=== PATIENT | male | born 1930 | race Caucasian/White ===

== ENCOUNTER 2017-12-24 19:38 | Emergency (ER) | payer MEDICARE, OTHER ==
[~2017-12-24] VITALS: Ht 172.7 cm; Wt 88.5 kg
[~2017-12-24 19:38] MED LIST: AMLO10 PO; ASPI81CH PO; Advil200 M1 PO; BENA20 PO; CALCIUM PO; CYCL10 PO; ERGO400 PO; FISH1000 PO; GLUC500 PO; MULVITMINF PO; Omeprazole20 M1 PO; SIMV10 PO; TAMS.4ER PO; VIT1CAPS12 PO
[2017-12-24 20:25] LABS: BASOPHILS ABSOLUTE AUTO 0.04 K/mm3 (0.00-0.23); BASOPHILS PERCENT AUTO 1 % (0-2); EOSINOPHILS ABSOLUTE AUTO 0.14 K/mm3 (0.00-0.68); EOSINOPHILS PERCENT AUTO 2 % (0-6); Hematocrit 38.7 % (37.0-53.0); Hemoglobin 12.5 g/dL (13.5-17.5); IMMATURE GRAN ABSOLUTE AUTO 0.01 K/mm3 (0.00-0.10); IMMATURE GRAN PERCENT AUTO 0 % (0-1); LYMPHOCYTES PERCENT AUTO 21 % (21-46); MONOCYTES ABSOLUTE AUTO 0.68 K/mm3 (0.16-1.47); MONOCYTES PERCENT AUTO 10 % (4-13); Mean Corpuscular HGB 30.6 pg (26.0-34.0); Mean Corpuscular HGB Conc 32.3 g/dL (31.5-36.5); Mean Corpuscular Volume 95 fL (80-100); Mean Platelet Volume 10.5 fL (9.1-12.4); NEUTROPHILS ABSOLUTE AUTO 4.52 K/mm3 (1.96-9.15); NEUTROPHILS PERCENT AUTO 67 % (41-73); Platelet Count 208 K/mm3 (150-400); RDW Coefficient Variation 14.4 % (11.7-14.2); RDW Standard Deviation 50.4 fL (35.1-46.3); Red Blood Cell Count 4.08 M/mm3 (4.30-5.90); White Blood Cell Count 6.79 K/mm3 (4.00-11.30)
[2017-12-24 20:39] LABS: Albumin, Blood 3.8 g/dL (3.4-5.0); Bilirubin, Total 0.4 mg/dL (0.1-1.0); Bun/Creatinine Ratio 21.7 (12.0-20.0); Calcium, Blood 8.7 mg/dL (8.5-10.1); Creatinine, Blood 1.66 mg/dL (0.60-1.20); Globulin, Blood 3.8 g/dL (2.2-4.0); Potassium, Blood 4.4 mmol/L (3.5-5.5); Total Protein, Blood 7.6 g/dL (6.4-8.2)
== END 2017-12-24 22:33 | disposition home or self-care (01) ==
LOC: ER 19:38
PROVIDERS: Emergency Medicine
DX: R42 Dizziness and giddiness (principal); I10 Essential (primary) hypertension; Z79.899 Other long term (current) drug therapy; Z79.82 Long term (current) use of aspirin; Z87.891 Personal history of nicotine dependence
CPT/HCPCS: 36415; 80053; 85025; 93005; 93010; 99283

== ENCOUNTER 2019-03-01 04:56 | Inpatient (IN) | payer MEDICARE, OTHER ==
[~2019-03-01] VITALS: Ht 172.7 cm; Wt 87.7 kg
[2019-03-01 05:59] LABS: BASOPHILS ABSOLUTE AUTO 0.04 K/mm3 (0.00-0.23); BASOPHILS PERCENT AUTO 0 % (0-2); EOSINOPHILS ABSOLUTE AUTO 0.02 K/mm3 (0.00-0.68); EOSINOPHILS PERCENT AUTO 0 % (0-6); Hemoglobin 13.8 g/dL (13.5-17.5); IMMATURE GRAN ABSOLUTE AUTO 0.05 K/mm3 (0.00-0.10); IMMATURE GRAN PERCENT AUTO 0 % (0-1); LYMPHOCYTES PERCENT AUTO 5 % (21-46); MONOCYTES ABSOLUTE AUTO 0.74 K/mm3 (0.16-1.47); MONOCYTES PERCENT AUTO 6 % (4-13); Mean Corpuscular HGB 31.2 pg (26.0-34.0); Mean Corpuscular HGB Conc 32.9 g/dL (31.5-36.5); Mean Corpuscular Volume 95 fL (80-100); Mean Platelet Volume 10.3 fL (9.1-12.4); NEUTROPHILS ABSOLUTE AUTO 11.44 K/mm3 (1.96-9.15); NEUTROPHILS PERCENT AUTO 89 % (41-73); Platelet Count 205 K/mm3 (150-400); RDW Coefficient Variation 12.8 % (11.7-14.2); RDW Standard Deviation 44.1 fL (35.1-46.3); Red Blood Cell Count 4.43 M/mm3 (4.30-5.90); White Blood Cell Count 12.89 K/mm3 (4.00-11.30)
[2019-03-01 06:12] LABS: Albumin, Blood 3.6 g/dL (3.4-5.0); Albumin/Globulin Ratio 0.9 (0.8-1.8); Bilirubin, Total 0.4 mg/dL (0.1-1.0); Calcium, Blood 8.9 mg/dL (8.5-10.1); Creatinine, Blood 1.33 mg/dL (0.60-1.20); Globulin, Blood 3.8 g/dL (2.2-4.0); Potassium, Blood 5.2 mmol/L (3.5-5.5); Total Protein, Blood 7.4 g/dL (6.4-8.2)
--- NOTE | 2019-03-01 10:50 | NUR ---
pt arrived to room 229 from er dept being admitted for partial sbo pt stated he has had n/v since last night and dry heaves this am and abd pain past few days no bm past 3 days until he started having the n/v last night then had a good b/m had been taking stool softner pt stated he has not had any changes otherwise to his med routine or his physical routine pain at this time is 5/10 to the lower abd and mid abd and has epigastric pain from vomitting they did an ekg in the er was ns will notify dr sweet when he is out of the or for surg consult pt is npo prn mouth car supplies given
--- NOTE | 2019-03-01 12:05 | NUR ---
PT LAYING IN BED STATED THE PAIN IS BETTER BUT HAVING THE HICCUPS
--- NOTE | 2019-03-01 13:37 | NUR ---
CONSULT: SURGICAL CONSULT CALLED TO DR PINEDA BY THIS RN.
--- NOTE | 2019-03-01 15:35 | NUR ---
DR PINEDA BY TO SEE PT OK TO HAVE CL DIET
--- NOTE | 2019-03-01 18:00 | NUR ---
pt still bernice cl diet asked pt if he needs any pain meds stated no
--- NOTE | 2019-03-02 00:19 | NUR ---
Pt received awake, alert and oriented x3. Vital signs stable. On supplemental oxygen at 0.5L per NC. IVF infusing well. Patient ambulating to bathroom. Voiding and passing gas. Complaining of mild lower abdominal pain, medicated as ordered. Refer to EMAR. Call light within reach of Pt. Continue to monitor.
[2019-03-02 04:27] LABS: BASOPHILS ABSOLUTE AUTO 0.03 K/mm3 (0.00-0.23); BASOPHILS PERCENT AUTO 0 % (0-2); EOSINOPHILS ABSOLUTE AUTO 0.11 K/mm3 (0.00-0.68); EOSINOPHILS PERCENT AUTO 1 % (0-6); Hematocrit 36.8 % (37.0-53.0); Hemoglobin 11.9 g/dL (13.5-17.5); IMMATURE GRAN ABSOLUTE AUTO 0.02 K/mm3 (0.00-0.10); IMMATURE GRAN PERCENT AUTO 0 % (0-1); LYMPHOCYTES ABSOLUTE AUTO 1.22 K/mm3 (0.84-5.20); LYMPHOCYTES PERCENT AUTO 14 % (21-46); MONOCYTES ABSOLUTE AUTO 0.85 K/mm3 (0.16-1.47); MONOCYTES PERCENT AUTO 10 % (4-13); Mean Corpuscular HGB 30.7 pg (26.0-34.0); Mean Corpuscular HGB Conc 32.3 g/dL (31.5-36.5); Mean Corpuscular Volume 95 fL (80-100); Mean Platelet Volume 10.2 fL (9.1-12.4); NEUTROPHILS ABSOLUTE AUTO 6.67 K/mm3 (1.96-9.15); NEUTROPHILS PERCENT AUTO 75 % (41-73); Platelet Count 174 K/mm3 (150-400); RDW Coefficient Variation 13.2 % (11.7-14.2); RDW Standard Deviation 46.4 fL (35.1-46.3); Red Blood Cell Count 3.87 M/mm3 (4.30-5.90)
[2019-03-02 04:47] LABS: Alanine Aminotransfer (ALT/SGP 16 U/L (12-78); Albumin, Blood 2.9 g/dL (3.4-5.0); Albumin/Globulin Ratio 0.9 (0.8-1.8); Alk Phos 57 U/L (50-136); Anion Gap 6 mmol/L (6-16); Aspartate Aminotrans (AST/SGOT 15 U/L (12-37); Bilirubin, Total 0.6 mg/dL (0.1-1.0); Blood Urea Nitrogen 19 mg/dL (8-24); CO2, Blood 23 mmol/L (21-32); Calcium, Blood 7.8 mg/dL (8.5-10.1); Chloride, Blood 111 mmol/L (98-108); Creatinine, Blood 1.12 mg/dL (0.60-1.20); Globulin, Blood 3.3 g/dL (2.2-4.0); Glomerular Filtration Rate >60 (60-); Glucose, Blood 110 mg/dL (70-99); Potassium, Blood 4.7 mmol/L (3.5-5.5); Sodium, Blood 140 mmol/L (136-145); Total Protein, Blood 6.2 g/dL (6.4-8.2)
--- NOTE | 2019-03-02 05:56 | NUR ---
Pt alert and oriented. Vital signs stable. IVF infused. Ambulating to bathroom. Voiding well. Passing gas. Tolerating clear liquids. slept throughout the night.
--- NOTE | 2019-03-02 15:37 | NUR ---
DISCHARGE SUMMARY OT A&OX4, VSS, LEFT FLOOR WITH TO GO HOME, WITH ALL PERSONAL PROPERTY INCLUDING DISCHARGE PACKET. DISCHARGE INSTRUCTIONS PROVIDED. PT REP UNDERSTANDING THOSE INSTRUCTIONS INCLUDING 1 WK FU WITH PCP, STOOL SOFTENERS AND FULL LIQUID DIET FOR 2 DAYS. IV DC'D.
== END 2019-03-02 15:15 | disposition home or self-care (01) | DRG 395 ==
LOC: ER 04:56 → SURS 04:57 → ER 04:57 → SURS 09:48
PROVIDERS: Emergency Medicine; ADMIT Family Medicine
DX: K43.6 Other and unspecified ventral hernia with obstruction, without gangrene (principal); E86.9 Volume depletion, unspecified; M19.90 Unspecified osteoarthritis, unspecified site; J44.9 Chronic obstructive pulmonary disease, unspecified; K21.9 Gastro-esophageal reflux disease without esophagitis; R07.89 Other chest pain; G25.0 Essential tremor; H90.5 Unspecified sensorineural hearing loss; I12.9 Hypertensive chronic kidney disease with stage 1 through stage 4 chronic kidney disease, or unspecified chronic kidney disease; N18.3 Chronic kidney disease, stage 3 (moderate); E78.5 Hyperlipidemia, unspecified; Z79.82 Long term (current) use of aspirin; Z79.899 Other long term (current) drug therapy
CPT/HCPCS: 36415; 74022; 74177; 80053; 83690; 85025; 93005; 93010; 96361; 96374-59; 96375; 99285-25; J1170; J1650; J2405; J7030; J7042; Q9967

== ENCOUNTER 2019-03-07 01:43 | Inpatient (IN) | payer MEDICARE, OTHER ==
[~2019-03-07] VITALS: Ht 172.7 cm; Wt 86.2 kg
[2019-03-07 02:06] LABS: BASOPHILS ABSOLUTE AUTO 0.04 K/mm3 (0.00-0.23); BASOPHILS PERCENT AUTO 0 % (0-2); EOSINOPHILS ABSOLUTE AUTO 0.07 K/mm3 (0.00-0.68); EOSINOPHILS PERCENT AUTO 1 % (0-6); Hematocrit 40.9 % (37.0-53.0); Hemoglobin 13.6 g/dL (13.5-17.5); IMMATURE GRAN ABSOLUTE AUTO 0.03 K/mm3 (0.00-0.10); IMMATURE GRAN PERCENT AUTO 0 % (0-1); LYMPHOCYTES ABSOLUTE AUTO 0.89 K/mm3 (0.84-5.20); LYMPHOCYTES PERCENT AUTO 8 % (21-46); MONOCYTES ABSOLUTE AUTO 0.85 K/mm3 (0.16-1.47); MONOCYTES PERCENT AUTO 7 % (4-13); Mean Corpuscular HGB 31.4 pg (26.0-34.0); Mean Corpuscular HGB Conc 33.3 g/dL (31.5-36.5); Mean Corpuscular Volume 95 fL (80-100); Mean Platelet Volume 10.6 fL (9.1-12.4); NEUTROPHILS ABSOLUTE AUTO 9.66 K/mm3 (1.96-9.15); NEUTROPHILS PERCENT AUTO 84 % (41-73); Platelet Count 205 K/mm3 (150-400); RDW Coefficient Variation 12.7 % (11.7-14.2); RDW Standard Deviation 44.1 fL (35.1-46.3); Red Blood Cell Count 4.33 M/mm3 (4.30-5.90); White Blood Cell Count 11.54 K/mm3 (4.00-11.30)
[2019-03-07 02:25] LABS: Albumin, Blood 3.8 g/dL (3.4-5.0); Bilirubin, Total 0.4 mg/dL (0.1-1.0); Creatinine, Blood 1.31 mg/dL (0.60-1.20); Globulin, Blood 3.9 g/dL (2.2-4.0); Potassium, Blood 4.8 mmol/L (3.5-5.5); Total Protein, Blood 7.7 g/dL (6.4-8.2)
[2019-03-07 05:13] LABS: Hematocrit 39.8 % (37.0-53.0); Hemoglobin 13.1 g/dL (13.5-17.5); Mean Corpuscular HGB Conc 32.9 g/dL (31.5-36.5); Mean Corpuscular Volume 94 fL (80-100); Mean Platelet Volume 10.5 fL (9.1-12.4); Platelet Count 194 K/mm3 (150-400); RDW Coefficient Variation 12.8 % (11.7-14.2); RDW Standard Deviation 43.8 fL (35.1-46.3); Red Blood Cell Count 4.23 M/mm3 (4.30-5.90); White Blood Cell Count 12.44 K/mm3 (4.00-11.30)
[2019-03-07 05:35] LABS: Albumin, Blood 3.6 g/dL (3.4-5.0); Bilirubin, Total 0.5 mg/dL (0.1-1.0); Bun/Creatinine Ratio 15.8 (12.0-20.0); Calcium, Blood 8.9 mg/dL (8.5-10.1); Creatinine, Blood 1.33 mg/dL (0.60-1.20); Globulin, Blood 3.5 g/dL (2.2-4.0); Potassium, Blood 5.2 mmol/L (3.5-5.5); Total Protein, Blood 7.1 g/dL (6.4-8.2)
--- NOTE | 2019-03-07 07:26 | NUR ---
PT ADMITTED FROM ED AT APPROX 0410 FOR SBO. PT A&O X4. VS WNL. PT C/O SOME PAIN, HOWEVER MOSTLY NAUSEATED. MEDICATED WITH ZOFRAN PER EMAR. HYPOACTIVE BT. PT DENIES PASSING GAS. REPORTS THAT HIS LAST BM WAS YESTERDAY. PT NPO WITH FLUIDS INFUSING.
[2019-03-07] MEDS ORDERED: SENN187 PO (07:54)
--- NOTE | 2019-03-07 10:43 | NUR ---
PT TO DAY SURGERY AT APPOX 1030.
--- NOTE | 2019-03-07 11:25 | NUR ---
Patient up to Ambulate independently. Gait steady. Surgical site prepped with 2% Chlorhexidine cloth wipe. History, Chart, Medications and Allergies reviewed before start of procedure.Lungs clear T/O to Auscultation. Patient confirms NPO status and agrees with scheduled surgery. FAMILY AT BEDSIDE. PT PEARL ARIAS HAS BILATERAL HEARING AIEDS AND UPPER DENTURES REMOVED AND PLACED IN PACU. PT HAD INCREASING PAIN AND NAUSEA AND VEBALIZED THAT IT WAS OK THAT SIGNED FOR HIM. GAVE FENTANYL 12.5MCG AND ZOFRAN 4MG PER DR PINEDA. PT NAUSEA AND PAIN DECREASED BY 75% PER PATIENT. PT ALERT AND ORIENTED ON TRANSFER TO OR 2.
--- NOTE | 2019-03-07 11:50 | NUR ---
03/07/19 1150 Maria Ines Elizabeth A PATIENT GIVEN 4.5GM ZOSYN BROUGHT TO OR BY PALMA ROMERO AT 1141. DURÁN PLACED BY PALMA SAMPSON IN OR.
--- NOTE | 2019-03-07 15:33 | NUR ---
PT REQUESTED TO HAVE DURÁN CATHETER REMOVED DUE TO IRRITATION AND BURNING SENSATION.
--- NOTE | 2019-03-07 16:43 | NUR ---
SHIFT SUMMARY S/P EX LAP TODAY WITH HERNIA AND SBO REPAIR. PREVENA WOUND VAC IN PLACE WITH ABD BINDER IN PLACE. MEDICATED X1 WITH 25 MCG IV FENTANYL FOR PAIN. PT SLOWLY JULES ICE CHIPS. UP WITH 1 SBA TO BATHROOM USING PERSONAL CANE. LUIS ARMANDO BEGUM'Beulah PER PT REQUEST. IVF INFUSING PER ORDERS. POST OP VSS. FAMILY AT BEDSIDE FOR SUPPORT. CALL LIGHT WITHIN REACH.
--- NOTE | 2019-03-08 05:12 | NUR ---
Pt received awake, alert and oriented x4. c/o Moderate pain 12/05. medicated per order. Ambulating in hallway with cane. Wound vac intact, incision C/D/I. Pt having diffulties urinating, , bladder scanned 172ml. Encouraged pt to drink fluids, patient voided 100ml.
--- NOTE | 2019-03-08 10:37 | NUR ---
Spiritual care visit attempted. Upon receiving an admit referral for spiritual care, I visited patient. Patient is lying in bed and alert with spouse, Lindy hernandez. Patient tells me his medical history beginning about 4 years ago up to the present. While he is telling me his history a Friend enters the room and patient asks if I could come back tomorrow. I state that I will try to make that happen. I will continue to remain available to patient and family.
--- NOTE | 2019-03-08 18:39 | NUR ---
SUMMARY NO ACUTE CHANGES NOTED THROUGH THE DAY. PT IS INDEPENDENT IN THR ROOM. HIS IS AT THE BEDSIDE AND ASSISTS WITH CARE. PT IS TOLERATING CLEAR FLUIDS, VOIDING WNL. STATES HE IS UNABLE TO PASS FLATUS. PROVENA WOUND VAC REMAINS INTACT, SUCTION IN PLACE. PAIN WNL. CALL LIGHT IN REACH
[2019-03-09 05:02] LABS: BASOPHILS ABSOLUTE AUTO 0.01 K/mm3 (0.00-0.23); BASOPHILS PERCENT AUTO 0 % (0-2); EOSINOPHILS ABSOLUTE AUTO 0.05 K/mm3 (0.00-0.68); EOSINOPHILS PERCENT AUTO 1 % (0-6); Hematocrit 34.9 % (37.0-53.0); Hemoglobin 11.4 g/dL (13.5-17.5); IMMATURE GRAN ABSOLUTE AUTO 0.04 K/mm3 (0.00-0.10); IMMATURE GRAN PERCENT AUTO 0 % (0-1); LYMPHOCYTES ABSOLUTE AUTO 0.57 K/mm3 (0.84-5.20); LYMPHOCYTES PERCENT AUTO 5 % (21-46); MONOCYTES ABSOLUTE AUTO 0.88 K/mm3 (0.16-1.47); MONOCYTES PERCENT AUTO 8 % (4-13); Mean Corpuscular HGB 31.5 pg (26.0-34.0); Mean Corpuscular HGB Conc 32.7 g/dL (31.5-36.5); Mean Corpuscular Volume 96 fL (80-100); Mean Platelet Volume 10.5 fL (9.1-12.4); NEUTROPHILS ABSOLUTE AUTO 9.48 K/mm3 (1.96-9.15); NEUTROPHILS PERCENT AUTO 86 % (41-73); Platelet Count 170 K/mm3 (150-400); RDW Standard Deviation 46.2 fL (35.1-46.3); Red Blood Cell Count 3.62 M/mm3 (4.30-5.90); White Blood Cell Count 11.03 K/mm3 (4.00-11.30)
--- NOTE | 2019-03-09 05:14 | NUR ---
Patient A&O x4. Vital signs stable. Ambulating in hallway with cane. Pt states abdominal pain has improved. Wound vacc in place, no drainage. Pt states he has not passed gas. Voiding freely.
[2019-03-09 06:12] LABS: Bun/Creatinine Ratio 19.8 (12.0-20.0); Calcium, Blood 8.2 mg/dL (8.5-10.1); Creatinine, Blood 1.31 mg/dL (0.60-1.20); Phosphorus, Blood 3.2 mg/dL (2.5-4.9); Potassium, Blood 4.4 mmol/L (3.5-5.5)
--- NOTE | 2019-03-09 18:22 | NUR ---
Summary: Joey has been pleasant and cooperative this shift. He is amublating in the hallways, reports having passed flatus. Wound vac patent, abdominal binder in place. He is [place], able to communicate easily with hearing aids in place. at bedside. VSS. He uses his call light appropraitely, it is within reach. He is able to make his needs known.
--- NOTE | 2019-03-10 05:28 | NUR ---
Patient Alert and oriented x4. Ambulating in hallways. Passing gas. No complaints of pain. Tolerating clear liquids. voiding well
[2019-03-10 05:56] LABS: Bun/Creatinine Ratio 17.9 (12.0-20.0); Creatinine, Blood 1.23 mg/dL (0.60-1.20); Potassium, Blood 4.3 mmol/L (3.5-5.5)
--- NOTE | 2019-03-10 11:53 | NUR ---
dr micki ryan on pt, orders received
--- NOTE | 2019-03-10 17:57 | NUR ---
NO ACUTE CHANGES THIS SHIFT. ABI REPORTS FEELING BETTER AND BETTER. HE STATES HE IS FEELING STRONGER. HE IS AMBULATING INDEPENDENTLY, TAKING HIMSELF ON SHORT WALKS AROUND THE UNIT. AT BEDSIDE. HE SHOWERED TODAY WITH ONLY SETUP ASSISTANCE. HE USES HIS CALL LIGHT APPROPRIATELY. HE IS ABLE TO MAKE HIS NEEDS KNOWN. HE IS RESTING COMFORTABLY IN BED WITH HIS CALL LIGHT IN REACH. DR. PINEDA ADVANCED HIS DIET TO FULL LIQUIDS TODAY WHICH HE HAS BEEN TOLERATING WELL, NO N/V.
--- NOTE | 2019-03-11 04:25 | NUR ---
SHIFT SUMMARY: PT POD#4 FOR RESECTION WITH LYSIS OF ADHESIONS + HERNIA REPAIR. MIDLINE PREVINA INTACT WITH FOAM COMPRESSED. ACTIVE BT IN ALL QUADRANTS WITH MOD DISTENTION. PT REPORTS PASSING GAS. NO BM SINCE SURGERY. JULES FULL LIQ DIET. DENIES N/V AND ABD PAIN. AMBULATING HALLWAY AND INDEPENDENT IN ROOM. AT BEDSIDE AND IS SUPPORTIVE WITH CARE.
--- NOTE | 2019-03-11 14:01 | NUR ---
DR CORDERO HERE RECENTLY TO SEE PT. SEE ORDERS.
--- NOTE | 2019-03-11 17:23 | NUR ---
DR RABAGO HERE RECENTLY TO SEE PT.
--- NOTE | 2019-03-11 17:40 | NUR ---
SHIFT SUMMARY PT EATING AND DRINKING. PT VOIDING. PT PASSING GAS. PT UP WALKING IN HALLWAY WITH STEADY GAIT. PT USING CALL LIGHT APPR. PT BEEN ASSISTED WITH ADL'S PRN. NAIMA FRANCOIS TO SEE PT. PT FAMILY IN/OUT OF ROOM TODAY.
[2019-03-12 04:52] LABS: Bun/Creatinine Ratio 12.6 (12.0-20.0); Calcium, Blood 8.1 mg/dL (8.5-10.1); Creatinine, Blood 1.27 mg/dL (0.60-1.20)
--- NOTE | 2019-03-12 05:56 | NUR ---
PATIENT SLEPT THE MAJORITY OF THEI NIGHT, HE DID COME OUT FOR A WALK AROUND 0100. hIS WHO HAS BEEN STAYING WITH HIM IN THE ROOM FOR THE PAST FEW NIGHTS STAYED AGAIN TONIGHT. he STATED WHIL ON HIS WALK THAT HE WAS HAVING PRESSURE IN HIS ABD BUT THAT IT WAS IN NO WAY SEVERE. NO BM TONIGHT. WOUND VAC HAS HAD NO DICERNABLE OUTPUT ON THIS SHIFT.
[2019-03-12] MEDS ORDERED: ONDA4ODT SL (15:41)
--- NOTE | 2019-03-12 16:08 | NUR ---
DISCHARGE PT DISCHARGED HOME FROM UNIT AT APROX 1600. PT GIVEN WRITTEN AND VERBAL DISCHARGE INSTRUCTIONS AND VERBALIZED UNDERSTANDING OF THESE INSTRUCTIONS. IFV REMOVED, PT TOLERATED WELL. WHEELCHAIR TO CAR.
== END 2019-03-12 16:05 | disposition home or self-care (01) | DRG 331 ==
LOC: ER 01:43 → SURS 04:12
PROVIDERS: Emergency Medicine; Family Medicine; Internal Medicine Endocrinology, Diabetes & Metabolism; Surgery; ADMIT Internal Medicine
PROC: 0DB80ZZ Excision of Small Intestine, Open Approach (ICD-10-PCS; principal; 2019-03-07 11:00)
DX: K56.51 Intestinal adhesions [bands], with partial obstruction (principal); K21.9 Gastro-esophageal reflux disease without esophagitis; E78.5 Hyperlipidemia, unspecified; Z87.891 Personal history of nicotine dependence; Z79.82 Long term (current) use of aspirin; J44.9 Chronic obstructive pulmonary disease, unspecified; K42.9 Umbilical hernia without obstruction or gangrene; M19.90 Unspecified osteoarthritis, unspecified site; N18.3 Chronic kidney disease, stage 3 (moderate); I12.9 Hypertensive chronic kidney disease with stage 1 through stage 4 chronic kidney disease, or unspecified chronic kidney disease; E66.3 Overweight; Z68.28 Body mass index [BMI] 28.0-28.9, adult
CPT/HCPCS: 36415; 74176; 80048; 80053; 83690; 83735; 84100; 85025; 85027; 88307; 96374; 96375; 96376; 99285-25; J1100; J1170; J1650; J1885; J2250; J2405; J2543; J2704; J2710; J3010; J7030; J7120

== ENCOUNTER 2020-04-17 08:03 | Day surgery (SDC) | payer MEDICARE, OTHER ==
[~2020-04-17] VITALS: Ht 165.1 cm; Wt 85.8 kg
[~2020-04-17 08:03] MED LIST changes: +ONDA4ODT SL; +SENN187 PO; +ZOCOR20 MG PO
--- NOTE | 2020-04-17 09:19 | NUR ---
Ambulatory in Day Surgery History, Chart, Medications and Allergies reviewed before start of procedure. Lungs clear T/O to Auscultation. Pre-Op teaching done. Pt verbalizes understanding.
--- NOTE | 2020-04-17 14:00 | NUR ---
pt arrived to room 215 from pacu s/p l total knee pt has no sensation r/t spinal block dressing c/d/i with polar pack on pt reporting discomfort to the l shoulder and l arm with numbness repositioned pt upright in bed stated that helped pt stated he has this happen at home and it happens when he is asleep and it gets better when he can stand up oriented to room
--- NOTE | 2020-04-17 16:48 | NUR ---
PT TRYING TO VOID WITH A URINAL
--- NOTE | 2020-04-17 17:00 | NUR ---
unable to void bladder scan 257 will let pt try again in a hr
--- NOTE | 2020-04-17 18:35 | NUR ---
PT ABLE TO MOVE BOTH LEGS WANTING TO EAT DINNER THEN WILL TRY TO VOID HIS DUUGHTER CAME TO SEE HIM FOR A VISIT PT REPORTS MIN PAIN SHOULDER AND ARM BETTER
[2020-04-18 04:05] LABS: BASOPHILS ABSOLUTE AUTO 0.01 K/mm3 (0.00-0.23); BASOPHILS PERCENT AUTO 0 % (0-2); EOSINOPHILS ABSOLUTE AUTO 0.01 K/mm3 (0.00-0.68); EOSINOPHILS PERCENT AUTO 0 % (0-6); Hematocrit 33.1 % (37.0-53.0); Hemoglobin 10.4 g/dL (13.5-17.5); IMMATURE GRAN ABSOLUTE AUTO 0.04 K/mm3 (0.00-0.10); IMMATURE GRAN PERCENT AUTO 0 % (0-1); LYMPHOCYTES ABSOLUTE AUTO 0.82 K/mm3 (0.84-5.20); LYMPHOCYTES PERCENT AUTO 7 % (21-46); MONOCYTES ABSOLUTE AUTO 0.76 K/mm3 (0.16-1.47); MONOCYTES PERCENT AUTO 6 % (4-13); Mean Corpuscular HGB 30.1 pg (26.0-34.0); Mean Corpuscular HGB Conc 31.4 g/dL (31.5-36.5); Mean Corpuscular Volume 96 fL (80-100); Mean Platelet Volume 11.4 fL (9.1-12.4); NEUTROPHILS ABSOLUTE AUTO 10.47 K/mm3 (1.96-9.15); NEUTROPHILS PERCENT AUTO 86 % (41-73); Platelet Count 191 K/mm3 (150-400); RDW Coefficient Variation 12.8 % (11.7-14.2); RDW Standard Deviation 45.1 fL (35.1-46.3); Red Blood Cell Count 3.45 M/mm3 (4.30-5.90); White Blood Cell Count 12.11 K/mm3 (4.00-11.30)
[2020-04-18 04:21] LABS: Bun/Creatinine Ratio 20.2 (12.0-20.0); Calcium, Blood 8.2 mg/dL (8.5-10.1); Creatinine, Blood 1.88 mg/dL (0.60-1.20); Potassium, Blood 4.9 mmol/L (3.5-5.5)
[2020-04-18] MEDS ORDERED: ASPI81CH PO (10:55)
[2020-04-18] MEDS ORDERED: BENA20 PO (10:56)
[2020-04-18] MEDS ORDERED: ROXICODONE5 MG PO (10:59)
[2020-04-18] MEDS ORDERED: PROM25 PO (11:01)
[2020-04-18] MEDS ORDERED: SULTRIDS PO (11:03)
--- NOTE | 2020-04-18 13:38 | NUR ---
DISCHARGE SUMMARY PT DISCHARGED AT 1215 VIA WHEELCHAIR WITH LEON LEE. PT MET WITH SON OUT IN THE PATIENT'S ENTRANCE. PT IS ALERT AND ORIENTED. PT DENIES DIZZINESS, NUMBNESS AND TINGLING SENSATION. PT ALSO DENIES PAIN. HE WAS CLEARED TO BE DC'D BY PHYISCAL THERAPIST THIS MORNING. HE IS FULL WT BEARING. LEFT KNEE INCISION SITE WITH AQUACEL DRESSING IS CDI. EXTRA DRESSING AND A HAND CARRY SCRIPT OF BACTRIM WAS SENT W/ DISCHARGE PAPERWORK. ADVISE PT TO FINISH BACTRIM DIRECTED. DISCHARGE INSTRUCTIONS WAS PROVIDED TO PT, PT WAS RECEPTIVE. PT TOLERATING PO INTAKE DENIES NAUSEA AND VOMITING. PT REPORTS PASSING MILD FLATUS. ADVISE TO CALL FOR WORSENING S/SX AND SIGNS OF INFECTIONS.
--- NOTE | 2020-04-18 15:26 | NUR ---
04/18/20 1526 Sarah Peralta VERIFICATIONS: EDIT CHART.
== END 2020-04-18 13:20 | disposition home or self-care (01) ==
LOC: ORSCMMR 08:03 → ORD 10:45 → ORSCMMR 10:45 → SURS 14:08 → ORSCMMR 04-18 13:20
PROVIDERS: Orthopaedic Surgery
PROC: 8E0YXBZ Computer Assisted Procedure of Lower Extremity (ICD-10-PCS; principal; 2020-04-17 10:45)
PROC: 0SRD0J9 Replacement of Left Knee Joint with Synthetic Substitute, Cemented, Open Approach (ICD-10-PCS; principal; 2020-04-17 10:45)
DX: M17.12 Unilateral primary osteoarthritis, left knee (principal); Z23 Encounter for immunization; I10 Essential (primary) hypertension; N18.9 Chronic kidney disease, unspecified; Z79.899 Other long term (current) drug therapy; Z79.82 Long term (current) use of aspirin; Z87.891 Personal history of nicotine dependence
CPT/HCPCS: 36415; 73560-LT; 80048; 83735; 85025; 88300; 97110; 97116; 97162; A9270; A9270-GY; C1713; C1776; G0008; J0171; J0690; J0735; J1100; J1885; J2250; J2370; J2405; J2704; J2795; J3010; J3370; J7120; Q2038

== ENCOUNTER → 2020-08-21 | Outpatient (CLI) | payer MEDICARE, OTHER ==
[~2020-08-21] MED LIST changes: +CENTRUM SILVER1 EAC2 PO; +FISH OIL 1,2001 EAC7 PO; +FUROSEMIDE20 MG PO; +KLOR-CON 1010 ME1 PO; +PRIMIDONE PO; +PROM25 PO; +Primidone50 MG PO; +ROXICODONE5 MG PO; +SULTRIDS PO; +THERA-D2000 UNIT PO; +TURMERIC500 M2 PO
== END ==
LOC: PLD 16:06 → LAB SHORT 16:06
DX: D48.5 Neoplasm of uncertain behavior of skin (principal)
CPT/HCPCS: 88305

== ENCOUNTER → 2021-02-07 | Outpatient (CLI) | payer MEDICARE, OTHER ==
[2021-02-07 10:51] LABS: BASOPHILS ABSOLUTE AUTO 0.04 K/mm3 (0.00-0.23); BASOPHILS PERCENT AUTO 1 % (0-2); EOSINOPHILS ABSOLUTE AUTO 0.13 K/mm3 (0.00-0.68); EOSINOPHILS PERCENT AUTO 2 % (0-6); Hematocrit 34.3 % (37.0-53.0); Hemoglobin 11.3 g/dL (13.5-17.5); IMMATURE GRAN ABSOLUTE AUTO 0.04 K/mm3 (0.00-0.10); IMMATURE GRAN PERCENT AUTO 1 % (0-1); LYMPHOCYTES ABSOLUTE AUTO 1.12 K/mm3 (0.84-5.20); LYMPHOCYTES PERCENT AUTO 13 % (21-46); MONOCYTES ABSOLUTE AUTO 0.63 K/mm3 (0.16-1.47); MONOCYTES PERCENT AUTO 7 % (4-13); Mean Corpuscular HGB 30.2 pg (26.0-34.0); Mean Corpuscular HGB Conc 32.9 g/dL (31.5-36.5); Mean Corpuscular Volume 92 fL (80-100); NEUTROPHILS ABSOLUTE AUTO 6.58 K/mm3 (1.96-9.15); NEUTROPHILS PERCENT AUTO 77 % (41-73); Platelet Count 288 K/mm3 (150-400); RDW Coefficient Variation 14.2 % (11.7-14.2); RDW Standard Deviation 47.8 fL (35.1-46.3); Red Blood Cell Count 3.74 M/mm3 (4.30-5.90); White Blood Cell Count 8.54 K/mm3 (4.00-11.30)
[2021-02-07 11:05] LABS: Albumin/Globulin Ratio 0.7 (0.8-1.8); Bilirubin, Total 0.8 mg/dL (0.1-1.0); Bun/Creatinine Ratio 17.7 (12.0-20.0); Calcium, Blood 8.3 mg/dL (8.5-10.1); Creatinine, Blood 1.47 mg/dL (0.60-1.20); Globulin, Blood 4.1 g/dL (2.2-4.0); Potassium, Blood 4.2 mmol/L (3.5-5.5); Total Protein, Blood 7.1 g/dL (6.4-8.2)
== END | disposition home or self-care (01) ==
LOC: LAB SHORT 10:44 → LAB 10:44
PROVIDERS: Family Medicine
DX: R10.9 Unspecified abdominal pain (principal)
CPT/HCPCS: 80053; 85025

== ENCOUNTER 2021-09-27 20:41 | Inpatient (IN) | payer MEDICARE, OTHER ==
[~2021-09-27] VITALS: Ht 170.2 cm; Wt 75.5 kg
[2021-09-27 21:39] LABS: Hematocrit 21.3 % (37.0-53.0); Hemoglobin 7.2 g/dL (13.5-17.5); Mean Corpuscular HGB Conc 33.8 g/dL (31.5-36.5); Mean Corpuscular Volume 98 fL (80-100); Mean Platelet Volume 11.6 fL (9.1-12.4); RDW Coefficient Variation 13.7 % (11.7-14.2); RDW Standard Deviation 49.2 fL (35.1-46.3); Red Blood Cell Count 2.18 M/mm3 (4.30-5.90)
[2021-09-27 21:42] LABS: Platelet Count 40 K/mm3 (150-400)
[2021-09-27 21:43] LABS: White Blood Cell Count 0.77 K/mm3 (4.00-11.30)
[2021-09-27 21:53] LABS: Alanine Aminotransfer (ALT/SGP 40 U/L (12-78); Albumin, Blood 2.1 g/dL (3.4-5.0); Albumin/Globulin Ratio 0.5 (0.8-1.8); Alk Phos 322 U/L (50-136); Anion Gap 5 mmol/L (6-16); Aspartate Aminotrans (AST/SGOT 37 U/L (12-37); Bilirubin, Total 1.6 mg/dL (0.1-1.0); Blood Urea Nitrogen 17 mg/dL (8-24); Bun/Creatinine Ratio 17.9 (12.0-20.0); CO2, Blood 26 mmol/L (21-32); Calcium, Blood 7.6 mg/dL (8.5-10.1); Chloride, Blood 103 mmol/L (98-108); Creatinine, Blood 0.95 mg/dL (0.60-1.20); Globulin, Blood 4.1 g/dL (2.2-4.0); Glomerular Filtration Rate >60 (60-); Glucose, Blood 101 mg/dL (70-99); Potassium, Blood 3.6 mmol/L (3.5-5.5); Sodium, Blood 134 mmol/L (136-145); Total Protein, Blood 6.2 g/dL (6.4-8.2)
[2021-09-27 22:02] LABS: BAND PERCENT MAN 2 % (0-8); BASOPHILS PERCENT MAN 0 % (0-2); EOSINOPHILS PERCENT MAN 0 % (0-6); LYMPHOCYTES ABSOLUTE MAN 0.43 K/mm3 (0.84-5.20); LYMPHOCYTES PERCENT MAN 56 % (21-46); MONOCYTES ABSOLUTE MAN 0.21 K/mm3 (0.16-1.47); MONOCYTES PERCENT MAN 28 % (4-13); NEUTROPHILS ABSOLUTE MAN 0.12 K/mm3 (1.96-9.15); SEG NEUTROPHILS PERCENT MAN 14 % (41-73); TOTAL CELLS COUNTED 50
[2021-09-27] MEDS ORDERED: VIT1CAPS12 PO (22:28)
[2021-09-27 22:43] LABS: Influenza A, PCR NEGATIVE (NEGATIVE); Influenza B, PCR NEGATIVE (NEGATIVE); Resp Syncytial Virus, PCR NEGATIVE (NEGATIVE); SARS-Cov-2 (COVID-19) PCR, MMC NEGATIVE (NEGATIVE)
[2021-09-28 02:05] LABS: Source, Urine Clean Catch
[2021-09-28 02:07] LABS: Appearance, Urine Hazy (Clear); Bilirubin, Urine Neg (Neg); Blood, Urine Neg (Neg); Color, Urine Yellow (P-Yellow); Glucose Qualitative, Urine Neg (Neg); Ketones, Urine Neg (Neg); Leukocyte Esterase, Urine 2+ (Neg); Nitrite, Urine Neg (Neg); Protein, Urine 1+ (Neg); Urobilinogen, Urine 1+ (Normal)
[2021-09-28 02:24] LABS: Amorphous Mod (0-Heavy); Bacteria Mod /hpf; Mucus Light (0-Heavy); Red Blood Cells, Urine Not Seen /hpf (0-2); Squamous Epithelial Cells Mod /hpf (Few)
[2021-09-28 03:26] LABS: Lactate Dehydrogenase, Body Fl 206 U/L; Protein, Body Fluid 0.2 g/dL
[2021-09-28 03:37] LABS: Automated BF RBC Count 0.016 M/mm3 (0-0); Automated BF WBC Count 17.118 K/mm3 (0-999); Body Fluid WBC Count 17118 /mm3 (0-999); RBC Count, Body Fluid 16000 /mm3 (0-0)
[2021-09-28 03:40] LABS: Appearance, Body Fluid Turbid (Clear); Color, Body Fluid Brown (None-Yellow)
[2021-09-28 03:45] LABS: Total Cell Count, Body Fluid 25
[2021-09-28 06:34] LABS: Alanine Aminotransfer (ALT/SGP 30 U/L (12-78); Albumin/Globulin Ratio 0.6 (0.8-1.8); Alk Phos 241 U/L (50-136); Anion Gap 6 mmol/L (6-16); Aspartate Aminotrans (AST/SGOT 35 U/L (12-37); Bilirubin, Total 2.1 mg/dL (0.1-1.0); Blood Urea Nitrogen 17 mg/dL (8-24); Bun/Creatinine Ratio 19.5 (12.0-20.0); CO2, Blood 21 mmol/L (21-32); Calcium, Blood 7.2 mg/dL (8.5-10.1); Chloride, Blood 105 mmol/L (98-108); Creatinine, Blood 0.87 mg/dL (0.60-1.20); Globulin, Blood 3.3 g/dL (2.2-4.0); Glomerular Filtration Rate >60 (60-); Glucose, Blood 92 mg/dL (70-99); Potassium, Blood 3.8 mmol/L (3.5-5.5); Sodium, Blood 132 mmol/L (136-145); Total Protein, Blood 5.3 g/dL (6.4-8.2)
[2021-09-28 06:45] LABS: Hematocrit 23.7 % (37.0-53.0); Mean Corpuscular HGB 32.8 pg (26.0-34.0); Mean Corpuscular HGB Conc 33.8 g/dL (31.5-36.5); Mean Corpuscular Volume 97 fL (80-100); Mean Platelet Volume 10.8 fL (9.1-12.4); RDW Coefficient Variation 14.6 % (11.7-14.2); RDW Standard Deviation 51.5 fL (35.1-46.3); Red Blood Cell Count 2.44 M/mm3 (4.30-5.90)
[2021-09-28 06:49] LABS: BASOPHILS PERCENT AUTO 0 % (0-2); EOSINOPHILS PERCENT AUTO 0 % (0-6); IMMATURE GRAN PERCENT AUTO 0 % (0-1); LYMPHOCYTES ABSOLUTE AUTO 0.23 K/mm3 (0.84-5.20); LYMPHOCYTES PERCENT AUTO 42 % (21-46); MONOCYTES ABSOLUTE AUTO 0.24 K/mm3 (0.16-1.47); MONOCYTES PERCENT AUTO 44 % (4-13); NEUTROPHILS ABSOLUTE AUTO 0.08 K/mm3 (1.96-9.15); NEUTROPHILS PERCENT AUTO 15 % (41-73)
[2021-09-28 06:52] LABS: Platelet Count 30 K/mm3 (150-400); White Blood Cell Count 0.55 K/mm3 (4.00-11.30)
--- NOTE | 2021-09-28 07:47 | NUR ---
SHIFT SUMMARY PT ADMITTED TO ROOM 311 FROM ER. PT A/O X 3, HARD OF HEARING, HAS A CHRONIC ESSENTIAL TREMOR. PT VOIDING WITHOUT DIFFICULTY, IR DRAIN TO RUQ, DRAINING DARK BROWN/GREEN BILE FLUID. SBP IN THE 80'S ON ARRIVAL, 1 UNIT PRBC GIVEN FOR HGB 7.2, ALBUMIN GIVEN PER MAR. NO C/O DIZZINESS, AMBULATED WITH SBA. MED PER MAR X 1 FOR C/O HEADACHE AND MILD NAUSEA, NO EMESIS. DAUGHTER REPORTS PT HAS LOST APPROX 15 POUNDS WITHOUT TRYING RECENTLY DUE TO DECREASED APPETITE. SR NOTED ON TELE, VSS, ANTICIAPTE DC WHEN MEDICALLY STABLE.
--- NOTE | 2021-09-28 16:46 | NUR ---
SHIFT SUMMARY PT AOX4; ON NEUTROPENIC PRECAUTION. PT IS 1P ASSIST TO THE BATHROOM, AND HE HAD A BM TODAY. WBC IS 0.55 TODAY; FILGRASTIM GIVEN TO INCREASE WBC. TALKED TO DTR AND PT AT BEDSIDE ABOUT DISEASE PROCESS. NO SIGND OF BLEEDING. PT DENIES PAIN OR CP AT THIS TIME. PT HAS BILIARY DRAIN BAG; PATENT AND DRAINING. BED IS IN THE LOWEST POSITION AND CALL LIGHT WITHIN REACH
[2021-09-29 05:24] LABS: Hematocrit 25.3 % (37.0-53.0); Hemoglobin 8.6 g/dL (13.5-17.5); Mean Corpuscular HGB 32.3 pg (26.0-34.0); Mean Corpuscular Volume 95 fL (80-100); Mean Platelet Volume 11.7 fL (9.1-12.4); RDW Coefficient Variation 14.6 % (11.7-14.2); RDW Standard Deviation 50.4 fL (35.1-46.3); Red Blood Cell Count 2.66 M/mm3 (4.30-5.90); White Blood Cell Count 2.11 K/mm3 (4.00-11.30)
[2021-09-29 05:39] LABS: Platelet Count 38 K/mm3 (150-400)
[2021-09-29 05:42] LABS: Alanine Aminotransfer (ALT/SGP 31 U/L (12-78); Albumin/Globulin Ratio 0.5 (0.8-1.8); Alk Phos 250 U/L (50-136); Anion Gap 7 mmol/L (6-16); Aspartate Aminotrans (AST/SGOT 28 U/L (12-37); Bilirubin, Total 1.6 mg/dL (0.1-1.0); Blood Urea Nitrogen 19 mg/dL (8-24); Bun/Creatinine Ratio 18.8 (12.0-20.0); CO2, Blood 23 mmol/L (21-32); Calcium, Blood 7.4 mg/dL (8.5-10.1); Chloride, Blood 103 mmol/L (98-108); Creatinine, Blood 1.01 mg/dL (0.60-1.20); Globulin, Blood 3.7 g/dL (2.2-4.0); Glomerular Filtration Rate >60 (60-); Glucose, Blood 77 mg/dL (70-99); Potassium, Blood 3.6 mmol/L (3.5-5.5); Sodium, Blood 133 mmol/L (136-145); Total Protein, Blood 5.7 g/dL (6.4-8.2)
[2021-09-29 06:07] LABS: BAND PERCENT MAN 18 % (0-8); BASOPHILS PERCENT MAN 0 % (0-2); EOSINOPHILS ABSOLUTE MAN 0.02 K/mm3 (0.00-0.68); EOSINOPHILS PERCENT MAN 1 % (0-6); LYMPHOCYTES % ATYPICAL MANUAL 1 % (0-0); LYMPHOCYTES ABSOLUTE MAN 0.69 K/mm3 (0.84-5.20); LYMPHOCYTES PERCENT MAN 32 % (21-46); METAMYELOCYTE ABSOLUTE MAN 0.04 K/mm3 (0.00-0.00); METAMYELOCYTE PERCENT MAN 2 % (0-0); MONOCYTES PERCENT MAN 19 % (4-13); MYELOCYTE ABSOLUTE MAN 0.02 K/mm3 (0.00-0.00); MYELOCYTE PERCENT MAN 1 % (0-0); NEUTROPHILS ABSOLUTE MAN 0.92 K/mm3 (1.96-9.15); SEG NEUTROPHILS PERCENT MAN 26 % (41-73); TOTAL CELLS COUNTED 100
--- NOTE | 2021-09-29 06:26 | NUR ---
SUMMARY PT MED X 1 WITH TYLENOL FOR ABD PAIN. SLEPT AFTER. NO ACUTE CHANGES. PLATELET LEVEL IMPROVED TO 38.
--- NOTE | 2021-09-29 17:58 | NUR ---
SHIFT SUMMARY PT A&OX4. VSS. ABLE TO INDEPENDENTLY AMBULATE TO RESTROOM USING A WALKER. PT C/O ABD PAIN TODAY. MEDICATED TWICE WITH TYLENOL & ONCE WITH TRAMODOL. HE REPORTS BETTER CONTROL WITH TYLENOL. IS WAITING FOR PALLIATIVE CARE CONSULT. PT IS ANTICIPATING POSSIBLE DC HOME TOMORROW.
--- NOTE | 2021-09-30 03:29 | NUR ---
SHIFT SUMMARY NO ACUTE CHANGES OVERNIGHT. PT REPORTS VAGUE ABD PAIN. PAIN MANAGED WITH TRAMADOL. IV ABX ADMINSTERED. AMBULATES IN THE BATHROOM WITH FWW. USE CALL LIGHT APPROPRIATELY. INDEPENDENT IN ROOM. SLEPT GOOD T/O SHIFT. VOIDS WITHOUT ANY COMPLAINS IN THE BATHROOM. ABD DRAIN IS INTACT. VSS. TELE AT [facility] WITH PAC. PT DENIES CHEST PAIN AND SOB. CALL LIGHT WITHIN REACH. WILL PROVIDE REPORT TO ONCOMING NURSE. PLAN FOR POSSIBLE DC HOME TODAY.
[2021-09-30 05:41] LABS: Hematocrit 27.8 % (37.0-53.0); Hemoglobin 9.5 g/dL (13.5-17.5); Mean Corpuscular HGB 32.9 pg (26.0-34.0); Mean Corpuscular HGB Conc 34.2 g/dL (31.5-36.5); Mean Corpuscular Volume 96 fL (80-100); Mean Platelet Volume 11.6 fL (9.1-12.4); Platelet Count 63 K/mm3 (150-400); RDW Coefficient Variation 14.6 % (11.7-14.2); RDW Standard Deviation 51.1 fL (35.1-46.3); Red Blood Cell Count 2.89 M/mm3 (4.30-5.90); White Blood Cell Count 5.34 K/mm3 (4.00-11.30)
[2021-09-30 06:07] LABS: Alanine Aminotransfer (ALT/SGP 48 U/L (12-78); Albumin/Globulin Ratio 0.5 (0.8-1.8); Alk Phos 347 U/L (50-136); Anion Gap 4 mmol/L (6-16); Aspartate Aminotrans (AST/SGOT 51 U/L (12-37); Bilirubin, Total 1.4 mg/dL (0.1-1.0); Blood Urea Nitrogen 18 mg/dL (8-24); Bun/Creatinine Ratio 18.3 (12.0-20.0); CO2, Blood 26 mmol/L (21-32); Calcium, Blood 7.5 mg/dL (8.5-10.1); Chloride, Blood 106 mmol/L (98-108); Creatinine, Blood 0.98 mg/dL (0.60-1.20); Globulin, Blood 3.7 g/dL (2.2-4.0); Glomerular Filtration Rate >60 (60-); Glucose, Blood 64 mg/dL (70-99); Phosphorus, Blood 2.7 mg/dL (2.5-4.9); Potassium, Blood 3.8 mmol/L (3.5-5.5); Sodium, Blood 136 mmol/L (136-145); Total Protein, Blood 5.7 g/dL (6.4-8.2)
[2021-09-30 06:10] LABS: BAND PERCENT MAN 12 % (0-8); BASOPHILS PERCENT MAN 0 % (0-2); EOSINOPHILS PERCENT MAN 0 % (0-6); LYMPHOCYTES ABSOLUTE MAN 0.69 K/mm3 (0.84-5.20); LYMPHOCYTES PERCENT MAN 13 % (21-46); MONOCYTES ABSOLUTE MAN 0.48 K/mm3 (0.16-1.47); MONOCYTES PERCENT MAN 9 % (4-13); MYELOCYTE ABSOLUTE MAN 0.16 K/mm3 (0.00-0.00); MYELOCYTE PERCENT MAN 3 % (0-0); SEG NEUTROPHILS PERCENT MAN 63 % (41-73); TOTAL CELLS COUNTED 100
[2021-09-30 06:21] LABS: Magnesium, Blood 1.1 mg/dL (1.6-2.4)
[2021-09-30] MEDS ORDERED: Acetaminophen650 M1 PO (09:57)
[2021-09-30] MEDS ORDERED: MIRT15 PO (09:58)
[2021-09-30] MEDS ORDERED: PANT40 PO (09:58)
[2021-09-30] MEDS ORDERED: MIRALAX17 GM PO (09:59)
[2021-09-30] MEDS ORDERED: TRAM50 PO (09:59)
[2021-09-30] MEDS ORDERED: VISBIOME 112.51 EACH PO (10:00)
[2021-09-30] MEDS ORDERED: CIPR500 PO (10:01)
--- NOTE | 2021-09-30 16:50 | NUR ---
DISCHARGE PATIENT TRANSPORTED VIA WHEELCHAIR TO PRIVATE VEHICLE. DISCHARGE INSTRUCTIONS EXPLAINED TO PATIENT. PATIENT STATED UNDERSTANDING. PACKET SENT WITH PATIENT. BELONGINGS SENT WITH PATIENT. IV REMOVED WITHOUT DIFFICULTY. TELE REMOVED WITHOUT DIFFICULTY. MEDICATIONS FAXED TO PREFERRED PHARMACY. [facility] TO SCHEDULE FOLLOW UP APPOINTMENT.
--- NOTE | 2021-09-30 17:19 | NUR ---
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 Pt's daughter is a medical insurance coder at [employer], and understands how to best help her father at this time.
--- NOTE | 2021-10-01 08:07 | NUR ---
Per Dr. Wallace discharge appropriate. Patient did not oppose discharge. Patient is discharged home to residence: [address] [place] [address]. Patient discharged with Home Health: [facility] contacted and notified of discharge. Date of discharge: 09/30/2021 Transportation provided by: [facility] Faulk[facility] [phone] DME Ordered: none needed Follow-ups needed: Explained importance of follow-up appointment. Daughter works at [employer]. Provider/PCP: Dr Farooq Jeffers When: within one week Specialty: Follow-up with oncologist Dr Lopez When: 10/06/21 Confirmed numbers: Caregiver Yady [phone] Comment: Patient to contact PCP with any questions regarding medication management, social service needs, and if condition worsens go to Urgent Care/ER. No barriers to discharge on this date. Patient has family support
== END 2021-09-30 16:40 | disposition home health service (06) | DRG 809 ==
LOC: ER 20:41 → MEDS 20:42
PROVIDERS: Family Medicine; Student in an Organized Health Care Education/Training Program; ADMIT Internal Medicine
DX: D70.1 Agranulocytosis secondary to cancer chemotherapy (principal); C25.0 Malignant neoplasm of head of pancreas; Z20.822 Contact with and (suspected) exposure to COVID-19; R50.81 Fever presenting with conditions classified elsewhere; E78.5 Hyperlipidemia, unspecified; K21.9 Gastro-esophageal reflux disease without esophagitis; M19.90 Unspecified osteoarthritis, unspecified site; N40.0 Benign prostatic hyperplasia without lower urinary tract symptoms; Z66 Do not resuscitate; T45.1X5A Adverse effect of antineoplastic and immunosuppressive drugs, initial encounter; D64.81 Anemia due to antineoplastic chemotherapy; D69.59 Other secondary thrombocytopenia; K57.30 Diverticulosis of large intestine without perforation or abscess without bleeding; E83.42 Hypomagnesemia; I12.9 Hypertensive chronic kidney disease with stage 1 through stage 4 chronic kidney disease, or unspecified chronic kidney disease; N18.30 Chronic kidney disease, stage 3 unspecified; Z96.49 Presence of other endocrine implants; Z86.010 Personal history of colon polyps; Z87.19 Personal history of other diseases of the digestive system; Z79.82 Long term (current) use of aspirin; Z79.899 Other long term (current) drug therapy
CPT/HCPCS: 0241U; 36415; 71045; 74177; 80053; 81001; 82042; 83605; 83615; 83735; 84100; 84157; 85025; 86850; 86900; 86901; 86920; 87040; 87070; 87075; 87077; 87086; 87186; 87205; 88108; 88305; 89051; 93005; 93010; 96365; 97110; 97162; 99285-25; A9270; J0692; J1447; J1650; J2405; J3475; J7030; J7050; P9016; P9046; Q9967